=== PATIENT | male | born 1955 | race Caucasian/White ===

== ENCOUNTER 2019-05-20 11:13 | Emergency (ER) | payer MEDICAID ==
[~2019-05-20] VITALS: Ht 182.9 cm; Wt 135.2 kg
[2019-05-20 11:30] VITALS: BP 165/92; Ht 182.9 cm; Wt 135.2 kg
== END 2019-05-20 13:20 | disposition home or self-care (01) ==
LOC: ED 11:13
DX: S51.011A Laceration without foreign body of right elbow, initial encounter (principal); I10 Essential (primary) hypertension; W01.0XXA Fall on same level from slipping, tripping and stumbling without subsequent striking against object, initial encounter; Y93.89 Activity, other specified; Y92.89 Other specified places as the place of occurrence of the external cause; Y99.8 Other external cause status
CPT/HCPCS: 90715

== ENCOUNTER 2019-05-22 05:36 | Emergency (ER) | payer MEDICAID ==
[~2019-05-22] VITALS: Ht 182.9 cm; Wt 134.7 kg
[2019-05-22 05:47] VITALS: Ht 182.9 cm; Wt 134.7 kg
[2019-05-22 06:42] VITALS: BP 154/93
== END 2019-05-22 06:42 | disposition home or self-care (01) ==
LOC: ED 05:36
DX: S51.011D Laceration without foreign body of right elbow, subsequent encounter (principal); I10 Essential (primary) hypertension; X58.XXXD Exposure to other specified factors, subsequent encounter